=== PATIENT | male | born 1990 | race Caucasian/White ===

== ENCOUNTER 2018-10-26 12:07 | Emergency (ER) | payer MEDICAID ==
[~2018-10-26] VITALS: Ht 175.3 cm; Wt 92.0 kg
[2018-10-26 12:11] VITALS: BP 117/82
[2018-10-26] MEDS ORDERED: LEVO25TA4 PO (12:53)
--- NOTE | 2018-10-26 12:55 | NUR ---
D/C INSTRUCTIONS & MEDS RV'WD WITH PT AND CAREGIVER FROM [facility]. RX GIVEN X1. PT AMBULATED OUT OF ED WITHOUT DIFFICULTY.
== END 2018-10-26 12:55 | disposition home or self-care (01) ==
LOC: ED 12:52
DX: E03.9 Hypothyroidism, unspecified (principal); Z76.0 Encounter for issue of repeat prescription; F17.200 Nicotine dependence, unspecified, uncomplicated
CPT/HCPCS: 99283

== ENCOUNTER 2018-12-25 20:41 | Emergency (ER) | payer MEDICAID ==
[~2018-12-25] VITALS: Ht 170.2 cm; Wt 79.0 kg
[~2018-12-25 20:41] MED LIST: LEVO25TA4 PO
[2018-12-25 21:13] LABS: BASOPHILS # (AUTO) 0.13 x10^3/uL (0-0.1); BASOPHILS % (AUTO) 1 % (0-1); EOSINOPHILS # (AUTO) 0.33 x10^3/uL (0-0.4); EOSINOPHILS % (AUTO) 3 % (1-7); LYMPHOCYTES # (AUTO) 3.61 x10^3/uL (1-3.4); LYMPHOCYTES % (AUTO) 32 % (22-44); MD NO; MEAN CORPUSCULAR HEMOGLOBIN 31.5 pg (27.5-34.5); MEAN CORPUSCULAR HGB CONC 33.4 g/dL (33.2-36.2); MEAN CORPUSCULAR VOLUME 94.4 fL (81-97); MEAN PLATELET VOLUME 9.5 fL (7.4-10.4); MONOCYTES # (AUTO) 0.44 x10^3/uL (0.2-0.8); MONOCYTES % (AUTO) 4 % (2-9); NEUTROPHILS # (AUTO) 6.76 x10^3/uL (1.8-6.8); NEUTROPHILS % (AUTO) 60 % (42-75); PLATELET COUNT 226 x10^3/uL (130-400); RED BLOOD COUNT 4.66 x10^6/uL (4.38-5.82); RED CELL DISTRIBUTION WIDTH 13.3 % (9.4-14.8)
--- NOTE | 2018-12-25 21:14 | NUR ---
" I WANT A HAM AND TURKEY SANDWICH ". TAKEN A ROBERTH AND Amber
[2018-12-25 21:25] LABS: ALBUMIN 4.1 g/dL (3.4-5.0); ANION GAP 9 mmol/L (5-15); CALCIUM 8.4 mg/dL (8.5-10.1); CHLORIDE 108 mmol/L (98-107); SALICYLATE LEVEL 3.5 mg/dL (2.8-20.0)
[2018-12-25 21:42] VITALS: BP 126/80
--- NOTE | 2018-12-25 21:42 | NUR ---
UP TO VOID. UA COLLECTED AND TAKEN TO LAB.
[2018-12-25 22:09] LABS: AMPHETAMINE SCREEN, URINE Negative (Negative); BARBITURATE SCREEN, URINE Negative (Negative); BENZODIAZEPINE SCREEN, URINE Negative (Negative); CANNABINOID SCREEN, URINE Negative (Negative); COCAINE SCREEN, URINE Negative (Negative); METHADONE SCREEN, URINE Negative (Negative); OPIATE SCREEN, URINE Negative (Negative)
--- NOTE | 2018-12-25 22:16 | NUR ---
D/C INST REVIEWED W/ THE PT TO INCLUDE F/U OP W/ PCP AND MENTAL HEALTH FOR A POSSIBLE ADJ IN PSYCH REGIMEN. THE PT CG , RAMIN, WAS CALLED W/ A REPORT AND TO LET HER KNOW HE WOULD BE ARRIVING BY [facility]. THE PT HAS BEEN COOPERATIVE AND W/O ADVERSE BEHAVIORS.
== END 2018-12-25 22:21 | disposition home or self-care (01) ==
LOC: ED 22:00
DX: F41.9 Anxiety disorder, unspecified (principal); F20.0 Paranoid schizophrenia; F17.210 Nicotine dependence, cigarettes, uncomplicated; E03.9 Hypothyroidism, unspecified
CPT/HCPCS: 36415; 80048; 80307; 82040; 85025; 99284

== ENCOUNTER 2019-12-17 01:13 | Inpatient (IN) | payer MEDICAID ==
[~2019-12-17] VITALS: Ht 175.3 cm; Wt 82.9 kg
--- NOTE | 2019-12-17 01:26 | NUR ---
BREAK RN: YONNY JOSELYN ALCANTAR FROM [facility]. PT WAS FOUND IN THE WATER THERE, POSSIBLY ATTEMPTING TO "DROWN HIMSELF". PT DENIES ANY SI OR HI AT THIS TIME. HX OF SCHIZOPHRENIA, CAN'T REMEMBER IF HE TAKES MEDICATIONS. WHEN ASKED WHY HE IS HERE HE STATES "I DON'T WANT TO TELL YOU, IT'S MY SECRET", "I WAS JUST TRYING TO REBORN MYSELF". PT EXHIBITS PARANOID BEHAVIOR. FOLLOWS COMMANDS AND IT COOPERATIVE AT THIS TIME. NO BELONGINGS WITH PATIENT. HE CAME TO ER IN UNDERWEAR. URINE SAMPLE PROVIDED BY PT. HE WAS PROVIDED WITH WARM BLANKETS. CHRISTINA GILLIAM AT BEDSIDE EVALUATING PT.
--- NOTE | 2019-12-17 01:28 | NUR ---
URINE SAMPLE OBTAINED, LABELED AND SENT TO LAB
--- NOTE | 2019-12-17 01:33 | NUR ---
REPORT FROM EL CUELLAR. PT RESTING AND ROOM SECURED. SITTER IN VIEW OF PT.
[2019-12-17 01:38] LABS: BASOPHILS # (AUTO) 0.03 x10^3/uL (0-0.1); BASOPHILS % (AUTO) 0 % (0-1); EOSINOPHILS # (AUTO) 0.01 x10^3/uL (0-0.4); EOSINOPHILS % (AUTO) 0 % (1-7); LYMPHOCYTES # (AUTO) 1.91 x10^3/uL (1-3.4); LYMPHOCYTES % (AUTO) 13 % (22-44); MD NO; MEAN CORPUSCULAR HEMOGLOBIN 31.8 pg (27.5-34.5); MEAN CORPUSCULAR HGB CONC 33.6 g/dL (33.2-36.2); MEAN CORPUSCULAR VOLUME 94.7 fL (81-97); MEAN PLATELET VOLUME 9.8 fL (7.4-10.4); MONOCYTES % (AUTO) 1 % (2-9); NEUTROPHILS # (AUTO) 12.28 x10^3/uL (1.8-6.8); NEUTROPHILS % (AUTO) 85 % (42-75); PLATELET COUNT 280 x10^3/uL (130-400); RED CELL DISTRIBUTION WIDTH 13.5 % (9.4-14.8)
[2019-12-17 01:44] LABS: ALBUMIN 5.1 g/dL (3.4-5.0); ANION GAP 11 mmol/L (5-15); CALCIUM 9.8 mg/dL (8.5-10.1); CHLORIDE 100 mmol/L (98-107); CREATININE 2.21 mg/dL (0.7-1.3); SALICYLATE LEVEL 4.2 mg/dL (2.8-20.0)
[2019-12-17 01:45] LABS: MICROSCOPIC INDICATED
[2019-12-17 01:50] LABS: AMPHETAMINE SCREEN, URINE Negative (Negative); BARBITURATE SCREEN, URINE Negative (Negative); BENZODIAZEPINE SCREEN, URINE Negative (Negative); CANNABINOID SCREEN, URINE Positive (Negative); COCAINE SCREEN, URINE Negative (Negative); METHADONE SCREEN, URINE Negative (Negative); OPIATE SCREEN, URINE Negative (Negative)
--- NOTE | 2019-12-17 02:42 | NUR ---
PT SLEEPING. EVEN RISE AND FALL OF CHEST OBSERVED. SITTER IN VIEW OF PT
[2019-12-17] MEDS ORDERED: SODIUM CHLORIDE FLUSH 10ML SYR IVF ONE (03:30)
[2019-12-17] MEDS ORDERED: SODIUM CHLORIDE 0.9% 1,000ML IVBOLUS ONE (03:30)
--- NOTE | 2019-12-17 03:32 | NUR ---
PIV PLACED. FLUIDS RUNNING. PT RESTING IN NAD. SITTER IN VIEW OF PT.
--- NOTE | 2019-12-17 04:32 | NUR ---
PT SLEEPING. EVEN RISE AND FALL OF CHEST OBSERVED. SITTER IN VIEW OF PT
--- NOTE | 2019-12-17 06:18 | NUR ---
PT RESTING AND WILL BE ADMITTED. VSS. PT IN NAD. CALL LIGHT IN REACH
--- NOTE | 2019-12-17 07:09 | NUR ---
Received bedside report from ALISA Alexander. All questions answered. Pt resting on gurney on left lateral side. NADN. No needs expressed. Attempted to call report to ALISA Calhoun. Will wait for return call as she is in report with another nurse. Sitter near doorway in direct line of sight for observation.
--- NOTE | 2019-12-17 07:16 | NUR ---
Provided report to ALISA Calhoun. All questions answered. Pt ready to transfer to floor from ED.
--- NOTE | 2019-12-17 07:42 | NUR ---
Pt transfered from ED to floor with no acute distress noticed.
[2019-12-17 08:04] VITALS: BP 100/61
[2019-12-17] MEDS: SODIUM CHLORIDE 0.9% 1,000 ML IV SCH ×3 (09:11→20:25)
[2019-12-17] MEDS ORDERED: ASA/APAP/ CAFFEINE TABLET PO PRN (10:00)
[2019-12-17] MEDS ORDERED: ACETAMINOPHEN 325 MG TABLET PO PRN (10:00)
[2019-12-17] MEDS ORDERED: DOCUSATE 100 MG CAPSULE PO PRN (10:00)
[2019-12-17] MEDS ORDERED: ONDANSETRON 2MG/ML, 2ML IVPush PRN (10:00)
[2019-12-17 19:38] VITALS: BP 99/58
[2019-12-17] MEDS: OLANZAPINE 5 MG TABLET PO SCH (20:25)
[2019-12-17] MEDS: PRAZOSIN 1 MG CAPSULE PO SCH (20:26)
[2019-12-18] MEDS: SODIUM CHLORIDE 0.9% 1,000 ML IV SCH ×4 (01:07→17:28)
[2019-12-18 01:35] VITALS: BP 95/52
[2019-12-18 05:48] LABS: BASOPHILS # (AUTO) 0.02 x10^3/uL (0-0.1); BASOPHILS % (AUTO) 0 % (0-1); EOSINOPHILS # (AUTO) 0.02 x10^3/uL (0-0.4); EOSINOPHILS % (AUTO) 0 % (1-7); LYMPHOCYTES # (AUTO) 2.76 x10^3/uL (1-3.4); LYMPHOCYTES % (AUTO) 50 % (22-44); MD NO; MEAN CORPUSCULAR HGB CONC 33.5 g/dL (33.2-36.2); MEAN CORPUSCULAR VOLUME 95.4 fL (81-97); MONOCYTES # (AUTO) 0.27 x10^3/uL (0.2-0.8); MONOCYTES % (AUTO) 5 % (2-9); NEUTROPHILS # (AUTO) 2.48 x10^3/uL (1.8-6.8); NEUTROPHILS % (AUTO) 45 % (42-75); PLATELET COUNT 153 x10^3/uL (130-400); RED BLOOD COUNT 3.25 x10^6/uL (4.38-5.82); RED CELL DISTRIBUTION WIDTH 13.5 % (9.4-14.8)
[2019-12-18 05:52] LABS: ALBUMIN 3.2 g/dL (3.4-5.0); ANION GAP 7 mmol/L (5-15); CHLORIDE 112 mmol/L (98-107)
[2019-12-18 06:10] LABS: CREATINE KINASE, TOTAL 1662 U/L (39-308); CREATININE 0.86 mg/dL (0.7-1.3)
[2019-12-18 07:15] VITALS: BP 107/53
[2019-12-18] MEDS: LEVOTHYROXINE 50 MCG TABLET PO SCH (08:02)
[2019-12-18] MEDS ORDERED: LOPERAMIDE 1 MG/7.5 ML LIQUID PO PRN (08:30)
[2019-12-18] MEDS ORDERED: LOPERAMIDE 2 MG CAPSULE PO PRN (09:50)
[2019-12-18 12:46] VITALS: BP 110/60
[2019-12-18 19:29] VITALS: BP 92/60
[2019-12-18] MEDS: PRAZOSIN 1 MG CAPSULE PO SCH (20:03)
[2019-12-18] MEDS: OLANZAPINE 5 MG TABLET PO SCH (20:03)
[2019-12-19] MEDS: SODIUM CHLORIDE 0.9% 1,000 ML IV SCH ×2 (00:39→04:58)
[2019-12-19 01:18] VITALS: BP 99/60
[2019-12-19 07:36] VITALS: BP 105/62
[2019-12-19] MEDS: LEVOTHYROXINE 50 MCG TABLET PO SCH (07:59)
[2019-12-19 09:08] LABS: MEAN CORPUSCULAR HEMOGLOBIN 31.4 pg (27.5-34.5); MEAN CORPUSCULAR HGB CONC 32.6 g/dL (33.2-36.2); MEAN CORPUSCULAR VOLUME 96.2 fL (81-97); MEAN PLATELET VOLUME 9.5 fL (7.4-10.4); PLATELET COUNT 170 x10^3/uL (130-400); RED BLOOD COUNT 3.33 x10^6/uL (4.38-5.82); RED CELL DISTRIBUTION WIDTH 13.2 % (9.4-14.8)
[2019-12-19 09:15] LABS: ALBUMIN 3.1 g/dL (3.4-5.0); ANION GAP 4 mmol/L (5-15); CALCIUM 8.3 mg/dL (8.5-10.1); CHLORIDE 119 mmol/L (98-107)
[2019-12-19 09:19] LABS: CREATINE KINASE, TOTAL 980 U/L (39-308)
[2019-12-19 09:28] LABS: BASOPHILS # (AUTO) 0.02 x10^3/uL (0-0.1); BASOPHILS % (AUTO) 1 % (0-1); EOSINOPHILS % (AUTO) 0 % (1-7); LYMPHOCYTES % (AUTO) 31 % (22-44); MD SCAN; MONOCYTES # (AUTO) 0.29 x10^3/uL (0.2-0.8); MONOCYTES % (AUTO) 7 % (2-9); NEUTROPHILS # (AUTO) 2.59 x10^3/uL (1.8-6.8); NEUTROPHILS % (AUTO) 62 % (42-75)
[2019-12-19 09:32] LABS: CLOSTRIDIUM DIFFICILE ANTIGEN NEGATIVE; CLOSTRIDIUM DIFFICILE TOXIN NEGATIVE (Negative)
[2019-12-19 12:40] VITALS: BP 98/59
[2019-12-19] MEDS ORDERED: OLAN5TAB9 PO (13:33)
[2019-12-19] MEDS ORDERED: PRAZ1CAP2 PO (13:33)
[2019-12-19 17:06] VITALS: BP 117/71
== END 2019-12-19 17:37 | disposition home or self-care (01) | DRG 750 ==
LOC: ED 06:20 → 4NE 07:45 → ED 09:38 → EDIP 09:38 → SUATTDRO 09:47 → 4NE 11:21
PROVIDERS: ADMIT Internal Medicine; ATTEND Internal Medicine
DX: F20.1 Disorganized schizophrenia (principal); N17.9 Acute kidney failure, unspecified; F20.3 Undifferentiated schizophrenia; D72.829 Elevated white blood cell count, unspecified; E87.1 Hypo-osmolality and hyponatremia; M62.82 Rhabdomyolysis; F41.1 Generalized anxiety disorder; Z91.14 Patient's other noncompliance with medication regimen; Z88.8 Allergy status to other drugs, medicaments and biological substances; Z91.19 Patient's noncompliance with other medical treatment and regimen
CPT/HCPCS: 36415; 80048; 80069; 80307; 81001; 82040; 82550; 83735; 85025; 87324; G0378; J2405; J7030